=== PATIENT | female | born 1985 | race Caucasian/White ===

== ENCOUNTER 2018-11-01 13:20 | Emergency (ER) | payer OTHER ==
[~2018-11-01] VITALS: Ht 167.6 cm; Wt 61.2 kg
[~2018-11-01 13:20] MED LIST: ARTHRITIS PAIN650 M1 PO; OXYCODONE HCL5 MG PO; PROVENTIL HFA6.7 GM INH
[2018-11-01] MEDS ORDERED: PROMETHAZINE HC25 M1 PO (19:24)
[2018-11-01] MEDS ORDERED: ONDANSETRON ODT8 MG PO (19:24)
== END 2018-11-01 20:24 | disposition home or self-care (01) ==
LOC: ED 13:20
DX: F11.23 Opioid dependence with withdrawal (principal); F17.200 Nicotine dependence, unspecified, uncomplicated
CPT/HCPCS: 80053; 81001; 83735; 84703; 85025; 96361; 96374; 96375; 96376; 99284-25; J2060; J2405; J2550; J7030